=== PATIENT | female | born 1940 | race Caucasian/White ===

== ENCOUNTER 2020-05-17 08:17 | Outpatient (CLI) | payer OTHER | END 2020-05-17 08:20 | disposition home or self-care (01) | LOC: MAMO-SONO 08:17 | PROVIDERS: ATTEND Internal Medicine | DX: Z12.31 Encounter for screening mammogram for malignant neoplasm of breast (principal); N64.59 Other signs and symptoms in breast ==

== ENCOUNTER 2020-05-17 12:39 | Outpatient (CLI) | payer OTHER | END 2020-05-17 12:53 | disposition home or self-care (01) | LOC: NUCLEAR 12:39 | PROVIDERS: ATTEND Internal Medicine | DX: M81.8 Other osteoporosis without current pathological fracture (principal); Z13.820 Encounter for screening for osteoporosis ==

== ENCOUNTER 2020-11-26 09:57 | Outpatient (CLI) | payer OTHER | END 2020-11-26 14:49 | disposition home or self-care (01) | LOC: OFIC 805 09:57 | PROVIDERS: ATTEND Otolaryngology | DX: H81.13 Benign paroxysmal vertigo, bilateral (principal) ==

== ENCOUNTER 2021-01-10 07:55 | Outpatient (CLI) | payer OTHER | END 2021-01-10 07:59 | disposition home or self-care (01) | LOC: LAB 07:55 | PROVIDERS: ATTEND Internal Medicine | DX: I10 Essential (primary) hypertension (principal); M54.5 Low back pain; M15.9 Polyosteoarthritis, unspecified; M81.0 Age-related osteoporosis without current pathological fracture; Z13.820 Encounter for screening for osteoporosis; M81.8 Other osteoporosis without current pathological fracture ==

== ENCOUNTER 2022-04-28 10:16 | Outpatient (CLI) | payer OTHER | END 2022-04-28 10:17 | disposition home or self-care (01) | LOC: MAMO-SONO 10:16 | PROVIDERS: ATTEND Internal Medicine | DX: Z12.31 Encounter for screening mammogram for malignant neoplasm of breast (principal) ==

== ENCOUNTER 2022-05-01 11:05 | Outpatient (CLI) | payer OTHER | END 2022-05-02 08:15 | disposition home or self-care (01) | LOC: NUCLEAR 11:05 | PROVIDERS: ATTEND Internal Medicine | DX: M81.0 Age-related osteoporosis without current pathological fracture (principal); I10 Essential (primary) hypertension; M54.59 Other low back pain; Z13.820 Encounter for screening for osteoporosis; M81.8 Other osteoporosis without current pathological fracture; R42 Dizziness and giddiness; H91.93 Unspecified hearing loss, bilateral; M15.9 Polyosteoarthritis, unspecified ==

== ENCOUNTER 2023-04-30 08:04 | Outpatient (CLI) | payer OTHER | END 2023-04-30 08:16 | disposition home or self-care (01) | LOC: MAMO-SONO 08:04 | PROVIDERS: ATTEND Student in an Organized Health Care Education/Training Program | DX: Z12.31 Encounter for screening mammogram for malignant neoplasm of breast (principal); N64.4 Mastodynia; R10.2 Pelvic and perineal pain; N83.201 Unspecified ovarian cyst, right side ==

== ENCOUNTER 2023-04-30 09:41 | Outpatient (CLI) | payer OTHER | END 2023-04-30 09:43 | disposition home or self-care (01) | LOC: LAB 09:41 | PROVIDERS: ATTEND Student in an Organized Health Care Education/Training Program | DX: N83.201 Unspecified ovarian cyst, right side (principal) ==

== ENCOUNTER 2024-06-02 09:54 | Outpatient (CLI) | payer OTHER | END 2024-06-02 09:57 | disposition home or self-care (01) | LOC: RAD 09:54 | PROVIDERS: ATTEND Ophthalmology | DX: Z01.811 Encounter for preprocedural respiratory examination (principal) ==

== ENCOUNTER 2024-06-06 07:57 | Outpatient (CLI) | payer OTHER ==
[2024-06-06 08:36] LABS: HEMATOCRIT 39.3 % (36.0-45.00); HEMOGLOBIN 13.4 g/dL (12.0-15.00); MEAN CELL VOLUME 81.9 fL (80.00-100.00); MEAN CORPUSCULAR HEMOGLOBIN 27.8 pg (27.00-32.0); PLATELET COUNT 229 K/uL (150-450); RED CELL DISTRIBUTION WIDTH 14.5 % (11.5-14.5); URINE APPEARANCE Clear; URINE BILIRRUBIN Negative (NEGATIVE); URINE BLOOD Negative; URINE COLOR Dark Yellow; URINE GLUCOSE Negative (NEGATIVE); URINE KETONE Trace (NEGATIVE); URINE LEUKOCYTE Small; URINE NITRATE Negative; URINE PROTEIN Negative (NEGATIVE); URINE UROBILINOGEN 0.2 E.U./dl
[2024-06-06 08:40] LABS: URINE BACTERIA 762.2 uL (0.0-1933); URINE EPITHELIAL CELLS 6.6 uL (0.0-38.8); URINE RBC 9.3 uL (0.0-20.8); URINE WBC 90.2 uL (0.0-23.2)
[2024-06-06 09:01] LABS: URINE CAST 0.15 uL (0.0-1.40)
[2024-06-06 09:09] LABS: INR 1.05; PARTIAL THROMBOPLASTIN TIME 27.8 SECONDS (22.0-34.0); PROTHROMBIN TIME 11.4 SECONDS (9.0-11.5)
[2024-06-06 09:11] LABS: ALBUMIN 3.8 gm/dL (3.4-5.0); BILIRUBIN TOTAL 0.6 mg/dL (0.3-1.2); CHOL HDL RATIO 3.4 (0-5.0); CREATININE SERUM 0.67 mg/dL (0.55-1.02); GFR 84.47; POTASSIUM 3.87 mEq/L (3.5-5.1); TOTAL PROTEIN 6.8 gm/dL (6.4-8.2)
== END 2024-06-06 08:05 | disposition home or self-care (01) ==
LOC: LAB 07:57
PROVIDERS: ATTEND Ophthalmology
DX: D68.8 Other specified coagulation defects (principal); H25.013 Cortical age-related cataract, bilateral; I10 Essential (primary) hypertension; M15.9 Polyosteoarthritis, unspecified; M81.0 Age-related osteoporosis without current pathological fracture; Z13.820 Encounter for screening for osteoporosis; M81.8 Other osteoporosis without current pathological fracture; R42 Dizziness and giddiness; H91.93 Unspecified hearing loss, bilateral; H60.533 Acute contact otitis externa, bilateral

== ENCOUNTER 2024-06-09 08:32 | Emergency (ER) | payer OTHER ==
[~2024-06-09] VITALS: Ht 149.9 cm; Wt 45.4 kg
[2024-06-09] MEDS ORDERED: KETOROLAC TROMETHAMINE 60 MG VIAL IM ONE ×2 (09:07→09:15)
[2024-06-09] MEDS ORDERED: DICLOFENAC SODI75 MG PO (10:19)
== END 2024-06-09 10:29 | disposition home or self-care (01) ==
LOC: ER 08:34
DX: S09.8XXA Other specified injuries of head, initial encounter (principal); W19.XXXA Unspecified fall, initial encounter; Y93.89 Activity, other specified; Y92.89 Other specified places as the place of occurrence of the external cause; Y99.8 Other external cause status; M54.9 Dorsalgia, unspecified; Z88.5 Allergy status to narcotic agent; Z88.6 Allergy status to analgesic agent
CPT/HCPCS: 70450; 96372; 99284; J1885

== ENCOUNTER 2024-06-28 09:00 | Emergency (ER) | payer OTHER ==
[~2024-06-28] VITALS: Ht 144.8 cm; Wt 46.3 kg
[~2024-06-28 09:00] MED LIST: DICLOFENAC SODI75 MG PO
[2024-06-28] MEDS ORDERED: FAMOtidine 10 MG/ML (4ML VIAL) IV ONE (09:30)
[2024-06-28] MEDS ORDERED: 0.9 % SODIUM CHLORIDE 1,000 ML IV ONE (09:30)
[2024-06-28 09:55] LABS: HEMATOCRIT 37.4 % (36.0-45.00); HEMOGLOBIN 12.6 g/dL (12.0-15.00); MEAN CELL VOLUME 82.8 fL (80.00-100.00); MEAN CORPUSCULAR HGB CONC 33.8 g/dl (32.0-36.0); PLATELET COUNT 265 K/uL (150-450); RED BLOOD COUNT 4.51 M/uL (4.00-6.00); RED CELL DISTRIBUTION WIDTH 13.9 % (11.5-14.5)
[2024-06-28 10:21] LABS: ALBUMIN 3.7 gm/dL (3.4-5.0); BILIRUBIN TOTAL 0.9 mg/dL (0.3-1.2); CREATININE SERUM 0.7 mg/dL (0.55-1.02); GFR 80.31; GLOBULINA 3.4 G/DL (2.4-3.5); POTASSIUM 3.68 mEq/L (3.5-5.1); TOTAL PROTEIN 7.1 gm/dL (6.4-8.2)
[2024-06-28] MEDS ORDERED: MAGNESIUM HYDROXIDE 400 MG/5 ML ML PO ONE (10:30)
[2024-06-28] MEDS ORDERED: KETOROLAC TROMETHAMINE 15 MG VIAL IM ONE (10:30)
[2024-06-28] MEDS ORDERED: LACTULOSE 10 G/15 ML ML PO ONE (10:30)
[2024-06-28] MEDS ORDERED: GLYCERIN 2.1 GM SUPP.RECT RECTAL ONE (10:30)
[2024-06-28] MEDS ORDERED: MINERAL OIL 30 ML BLIST.PACK PO ONE (10:30)
[2024-06-28] MEDS ORDERED: SURFAK240 M1 PO (14:51)
== END 2024-06-28 14:56 | disposition home or self-care (01) ==
LOC: ER 09:02
PROVIDERS: General Practice
DX: K59.00 Constipation, unspecified (principal); R10.9 Unspecified abdominal pain; Z88.5 Allergy status to narcotic agent; Z88.6 Allergy status to analgesic agent
CPT/HCPCS: 36415; 74240; 96365; 96366; 96372; 99283; J1885; J3490; J7030